=== PATIENT | female | born 1990 | race Caucasian/White ===

== ENCOUNTER 2017-11-29 12:30 | Emergency (ER) | payer BC, OTHER ==
[~2017-11-29] VITALS: Ht 165.1 cm; Wt 56.7 kg
[2017-11-29 12:35] VITALS: BP 120/77
[2017-11-29] MEDS ORDERED: IBUPROFEN 400 MG TABLET ONE (12:46)
[2017-11-29] MEDS ORDERED: IBUPROFEN 400 MG TABLET PO ONE (13:00)
== END 2017-11-29 14:29 | disposition home or self-care (01) ==
LOC: ER 12:32
DX: S60.022A Contusion of left index finger without damage to nail, initial encounter (principal); W20.8XXA Other cause of strike by thrown, projected or falling object, initial encounter; Y93.89 Activity, other specified; Y92.89 Other specified places as the place of occurrence of the external cause; Y99.8 Other external cause status
CPT/HCPCS: 29130; 73140; 99284; A4606; A6402; Z7610